=== PATIENT | female | born 2000 | race Caucasian/White ===

== ENCOUNTER 2025-07-27 19:10 | Emergency (ER) | payer OTHER, SELFPAY ==
[2025-07-27 19:11] VITALS: BP 108/9; PULSE 129; RESP 18; TEMP 36.9; O2SAT 100; BMI 23.2
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
--- OUTSIDE RECORDS SUMMARY | 2025-07-27 20:09 | XMS RPT_ITS | CCD ---
Author Organization [place] [employer] Inform ion Partnership 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 Reactive indicates that VZV IgG was detected consistent with previous infection and/or vaccination. A Non Reactive result indicates that VZV IgG was not detected suggesting that immunity has not been acquired. Performed at: [facility] [id number] [employer] Director: Jerod Galan PhD, Phone: [phone] Performed By: #### L [id number], L3100.0539 #### [facility] [address] [place], [address] Hepatitis B Surf AB - EMPon 08-07-2024 HEP B Surf Ab Reactive Normal [facility] Comment on above: Result Comment: Non Reactive: Inconsistent with immunity less than <10 mIU/mL Reactive: Consistent with immunity greater than or equal to 10 mIU/mL Performed By: #### L [id number], [id number] #### [facility] [address] [place], [place], [id number] Encounters Encounter Date Encounter Type Care Provider Facility Start: 08-07-2024 ambulatory Health Risk Assessment Facility:[facility] Payers Date Payer Category Payer Self-pay Summary Purpose Family History No Family History Records Found Advance Directives No Advanced Directives Records Found Additional Source Comments INFORMATION SOURCE (unrecogn ized section and content) DATE CREATED AUTHOR 08/10/2024 [facility] FOR RECORDS PERTAINING TO PATIENTS WHO ARE OR HAVE BEEN ENROLLED IN A CHEMICAL DEPENDENCY/SUBSTANCEABUSE PROGRAM, SOME INFORMATION MAY BE OMITTED. This clinical summary was aggregated from multiple sources. Caution should be exercised in using it in the provision of clinical care. This summary normalizes information from multiple sources, and as a consequence, information in this document may materially change the coding, format and clinical context of patient data. In addition, data may be omitted in some cases. CLINICAL DECISIONS SHOULD BE BASED ON THE PRIMARY CLINICAL RECORDS. [facility] [employer] [facility]. provides no warranty or guarantee of the accuracy or completeness of information in this document.
[2025-07-27 20:59] VITALS: BP 123/78; PULSE 130; RESP 16; TEMP 36.6; O2SAT 99
== END 2025-07-27 21:01 | disposition home or self-care (01) ==
PROVIDERS: Emergency Provider Emergency Medicine; Visit Provider Emergency Medicine
DX: S09.90XA Unspecified injury of head, initial encounter (principal); S80.11XA Contusion of right lower leg, initial encounter; S00.33XA Contusion of nose, initial encounter; V43.52XA Car driver injured in collision with other type car in traffic accident, initial encounter
CPT/HCPCS: 70450; 70486; 99283